=== PATIENT | female | born 1975 | race Caucasian/White ===

== ENCOUNTER → 2018-06-16 06:42 | Outpatient (CLI) | payer OTHER, SELFPAY ==
--- NOTE | 2018-06-16 06:51 | CT_ITS ---
STUDY: CT MAXILLOFACIAL SINUSES REASON FOR EXAM: Female, 43 years old. Anosmia x6 months. RADIATION DOSAGE (If Supplied By Facility): CTDIvol = ( 33.06 ) mGy, DLP = ( 883.43 ) mGycm TECHNIQUE: The patient was scanned in a multi detector CT scanner. High resolution axial imaging was performed without the administration of intravenous contrast material. Sagittal and coronal images were reconstructed. Individualized dose optimization techniques were used for this CT. COMPARISON: None. FINDINGS: FRONTAL SINUSES: Normal aeration, without mucosal inflammatory disease. ETHMOIDAL SINUSES: Normal aeration, without mucosal inflammatory disease. MAXILLARY SINUSES: Pronounced mucosal thickening in the right maxillary sinus. Normal left maxillary sinus. SPHENOIDAL SINUSES: Normal aeration, without mucosal inflammatory disease. Narrowing but patent right ostiomeatal unit. Mucosal thickening of the right Rosanna cell. Normal left ostiomeatal unit. Hypoplastic middle turbinates. Normal bilateral inferior turbinates. Mild right nasal septal deviation. There is patency of the bilateral nasal airways. The visualized osseous structures are normal. The visualized bilateral orbital contents are normal. Prominent protrusion of the right upper third molar into the right mattery sinus. CT/Sinus/Facial Bone IMPRESSION: 1. Pronounced right chronic maxillary sinusitis and mucosal thickening of the right Rosanna cell. 2. Mild right nasoseptal deviation. 3. Bilaterally patent ostiomeatal units. Electronically Signed: Maynor Samson MD at 14:36 EDT , Service support ,
== END ==
PROVIDERS: Family Provider Student in an Organized Health Care Education/Training Program; PCP Student in an Organized Health Care Education/Training Program; Referring Provider Otolaryngology
DX: R43.0 Anosmia (principal)
CPT/HCPCS: 70486

== ENCOUNTER → 2018-07-30 17:15 | Outpatient (CLI) | payer OTHER, SELFPAY ==
[2018-07-30 14:41] VITALS: BMI 27.8
[2018-08-03 11:56] LABS: HPV APTIMA, High Risk Negative (Negative)
--- OUTSIDE RECORDS SUMMARY | 2018-09-11 16:29 | XMS RPT_ITS ---
:1975 Author Organization OHIP Care Team Providers Name Role Phone JAY ANTHONY Attending Unavailable ANTHONY, JAY L Referring Unavailable ANTHONY, JAY L Referring Unavailable ANTHONY, JAY L Referring Unavailable ANTHONY, JAY L Referring Unavailable JOHN VALENCIA Attending Unavailable ANTHONY, JAY L Referring Unavailable ANTHONY, JAY L Referring Unavailable ANTHONY, JAY L Attending Unavailable ANTHONY, JAY L Referring Unavailable ANTHONY, JAY L Referring Unavailable ANTHONY, JAY L Referring Unavailable ANTHONY, JAY L Attending Unavailable ANTHONY, JAY L Attending Unavailable ANTHONY, JAY L Referring Unavailable ANTHONY, JAY L Referring Unavailable ALAN ISRAEL Attending Unavailable Anthony, Jay Primary Care Unavailable Tyrone Drake Referring Unavailable Nicole Dominguez Attending Unavailable Anthony, Jay Referring Unavailable Nicole Dominguez Attending Unavailable [place], Molly Referring Unavailable Jay Anthony Primary Care Unavailable PROBLEMS PROBLEMS DATE TYPE CONDITION / CODE ATTENDING STATUS SOURCE 07/30/2018 Unknown Z12.4 - Encounter for Nicole Dominguez Active [place] screening for Community malignant neoplasm of Hospital cervix / Repository Z12.4(ICD-10) 07/30/2018 Unknown Z01.411 - Encounter Nicole Dominguez Active [place] for gynecological Community examination (general) Hospital (routine) with Repository abnormal findings / Z01.411(ICD-10) 07/30/2018 Unknown R87.619 - Unspecified AngelicaNicole ozuna Active [place] abnormal cytological Community findings in [facility] from cervix uteri / Repository R87.619(ICD-10) 07/30/2018 Unknown M53.3 - Nicole Dominguez Active [place] Sacrococcygeal Community disorders, not Hospital elsewhere classified Repository / M53.3(ICD-10) 07/30/2018 Active Type 2 diabetes NA Active [facility] mellitus without Clinic Main complications / [facility] E11.9(ICD-10) Repository 07/30/2018 Active half-way (current) NA Active [facility] use of insulin / Clinic Main Z79.4(ICD-10) [facility] Repository 07/16/2018 Active Unspecified injury of NA Active [facility] lower back, initial Clinic Main encounter / [facility] S39.92XA(ICD-10) Repository 05/12/2017 Active Hyperlipidemia, NA Active [facility] unspecified / Clinic Main E78.5(ICD-10) [facility] Repository 07/13/2018 Active Other termite inspector NA Active [facility] (current) drug Clinic Main therapy / [facility] Z79.899(ICD-10) Repository 12/29/2017 Active Other symptoms and NA Active [facility] signs involving the Clinic Main musculoskeletal [facility] system / Repository R29.898(ICD-10) 12/29/2017 Active Paresthesia of skin / NA Active [facility] R20.2(ICD-10) Clinic Main [facility] Repository 12/29/2017 Active Radiculopathy, NA Active [facility] cervical region / Clinic Main M54.12(ICD-10) [facility] Repository 12/29/2017 Active Cervicalgia / NA Active [facility] M54.2(ICD-10) Clinic Main [facility] Repository 12/29/2017 Active Other chronic pain / NA Active [facility] G89.29(ICD-10) Clinic Main [facility] Repository 12/29/2017 Active Other cervical disc NA Active [facility] displacement, Clinic Main unspecified cervical [facility] region / Repository M50.20(ICD-10) 12/29/2017 Active Personal history of NA Active [facility] other (healed) Clinic Main physical injury and [facility] trauma / Repository Z87.828(ICD-10) PROCEDURES PROCEDURES No Procedure Records FoundRESULTS RESULTS [facility] Observed: 07/30/2018 Status: COMPLETED Source: [place] 5:18 PM CLINIC MAIN CAMPUS REPOSITORY HNO ID: [id number] Author: Mammography Coordinator Service: (none) Author Type: Physician Type: Letter Filed: 07/31/2018 11:33 PM Note Text: July 30, 2018 PID: [id number] Tatianna Pruett [address] [place] [address] Dear Ms. Pruett, We are pleased to inform you that the results of your recent breast imaging exam on 07/30/2018 are normal. Early detection of cancer is very important. We also understand recommendations regarding breast cancer screening are controversial. Please discuss with your primary care provider which strategy is best for you and whether a mammogram is right for you. Your imaging studies and report will be kept on file at [facility] as part of your permanent medical record and are available for your continuing care. Thank you for allowing us to help in meeting your health care needs. Sincerely, Dr. Strong Interpreting Radiologist [facility] (Normal over 40) DIE FORGER OFFICE VISIT Observed: 07/30/2018 Status: F Source: [place] RE[place] 3:22 PM [facility] REPOSITORY [facility] [address] [place] [address]. [address] [place] [address] OFFICE VISIT Date of Service: 07/30/18 MR#: [id number] Acct: [id number] Name: TATIANNA PRUETT Rep #: [id number] : 1975 Provider: WALDEMAR Dominguez Age/Sex: 43/F Location: [facility] Status: Signed Intake Vital Signs07/30/18 Height 5 ft 4 in 07/30/18 Weight: 162 lb 07/30/18 Body Mass Index (BMI) 27.8 Intake Visit Reasons: Annual, activity manager Ticket Printer And Tagger Required: No Is patient in pain?: No Allergies Penicillins Adverse Reaction (Unknown, Verified 07/30/18 14:43) unknown Medications doxycycline hyclate 100 mg capsule 100 mg PO BID 07/30/18 [History Confirmed 07/30/18] duloxetine 20 mg capsule,delayed release 20 mg PO BID 07/30/18 [History Confirmed 07/30/18] ethynodiol diac-eth estradiol 1 mg-35 mcg tablet 1 tab PO DAILY #84 tab 07/30/18 [Rx Confirmed 07/30/18] insulin glargine (U- 100) 100 unit/mL subcutaneous solution 20 unit SC DAILY 07/30/18 [History Confirmed 07/30/18] lisinopril 5 mg tablet 5 mg PO DAILY 07/30/18 [History Confirmed 07/30/18] meloxicam 15 mg tablet 15 mg PO DAILY 07/30/18 [History Confirmed 07/30/18] metformin 1,000 mg tablet 1,000 mg PO BID 07/30/18 [History Confirmed 07/30/18] omega-3 fatty acids 1,000 mg capsule 1,000 mg PO DAILY 07/30/18 [History Confirmed 07/30/18] Is last menstrual period known: Yes Last Menstral Period: 07/27/18 Post menopausal: No Patient : No : No PFSH Medical History Diabetes 1.5, managed as type 2 (Acute) Surgical History delivery delivered (Acute) Family History Mother Diabetes Father Diabetes Grandmother Hypertension Heart disease Social History current occupational status: employed current occupation: [employer] Smoking Status: Never smoker alcohol intake: never substance use type: does not use seatbelt use: sometimes do you feel safe at home: Yes additional social history: 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 DatName [place]/WeeksOutcome [facility] LocaProviderFOB e ht en tn Unknown Maye 1995 Unknown Deion 2004 HPI Annual, activity manager : Details: TATIANNA PRUETT is a 43 year old who presents for new patient annual exam. Aware needs to follow up on last year's abnormal pap but bad experience with prior provider and wanted to transfer care. She is also having pain at tailbone. Last PAP: Jun 2017:abnormal History of abnormal PAP: Negative colp Aug 2017 [facility] Last mammogram: today, pending History of abnormal mammogram: no Regular menses, last 2-3 days Sexually active, , denies STD concerns. Mallorier for contraception Female Reproductive History Last Menstral Period: 07/27/18 Questions: Metorrhagia: No, Sexually active: Yes, Dyspareunia: No, PCB: No ROS Const Constitutional: Denies fatigue, weight gain or weight loss Cardio Card: Denies chest pain Resp Resp: Denies cough or shortness of breath with activity GI GI: Denies abdominal pain, constipation, change in stools, vomiting or bloating : Reports as per HPI; denies urinary frequency, pelvic pain, urinary urgency, vaginal discharge, vaginal itching, urinary incontinence or difficulty urinating Exam Const General: cooperative, healthy appearing, no acute distress, well developed Orientation: alert, oriented to person, oriented to place HENMT Head: normal to inspection Neck Neck: normal visual inspection Thyroid: thyroid normal Lymphatic: no lymphadenopathy noted Chest Breast inspection: normal inspection of the breasts, normal inspection of the axillae Breast palpation: normal palpation of the breasts, normal palpation of the axillae, no axillary lymphadenopathy Resp Effort AND Inspection: normal respiratory effort GI Palpation: soft, nontender, no masses Rectal Exam: deferred External Female Exam: normal external appearance, normal appearance of the urethra Urethra: normal appearance of the urethra, normal palpation Speculum Exam - Vagina: normal appearance of the vagina, normal vaginal discharge Speculum Exam - Cervix: normal appearance of the cervix Bimanual Exam- Vagina AND Uterus: normal bimanual exam, uterine size normal, uterine shape normal, uterus non-tender Bimanual Exam- Adnexa, other: normal adnexae, no adnexal masses, adnexae non-tender, pelvic support normal Pelvic Support: normal Musc Coccyx: tenderness (displaced to left. No masses) Neuro General: alert, oriented x3 Psych Affect: normal affect Assessment AND Plan Problems 1. Encounter for gynecological examination with abnormal finding Z01.411 2. Abnormal cervical Papanicolaou smear, unspecified abnormal pap finding R87.619 3. Coccyx pain M53.3 Plan Completed breast and pelvic exam Reviewed diet and exercise Pap thin prep pap with HPV Mammogram pending today at [facility] Contraception refill oral contraceptive Follow up with PCP on pain in coccyx RTO 1 year, prn with problems Nicole Dominguez CRITICAL CARE UNIT NURSE Medications New: Discontinued: ethynodiol diac-eth estradiol 1-50 mg-mcg ([place]) Discontinued Reason:1 tab PO DAILY Ordered/Entered in error Coding Level of Care Code Off vis,new,prev 40-64yrs Diagnoses Encounter for gynecological examination with abnormal finding Z01.411 Gynecological examination findings: abnormal findings PRESENT Abnormal cervical Papanicolaou smear, unspecified abnormal pap finding R87.619 Abnormal Pap type: unspecified Coccyx pain M53.3 07/30/18 1522 <Electronically signed by Nicole Dominguez LAPEL PADDER-C> Date Nicole Dominguez LAPEL PADDER-C Cosigner Signature: Date (if applicable) CC: PAP IG HPV APTIMA Collected: 07/30/2018 Status: F Source: [place] ,45 2:30 PM [facility] REPOSITORY Order Comment: Specimen Comment: No. of containers..01 ThinPrep Vial TYPE CODE TESTS RESULT OUT OF RANGE REFERENCE UNITS LAB L7400.0800 . Normal DIAGN Comment Result Comment: NEGATIVE FOR INTRAEPITHELIAL LESION AND MALIGNANCY. REACTIVE CELLULAR CHANGES AND/OR REPAIR ARE PRESENT. LAB L7400.0900 . Normal ADEQ Comment Result Comment: Satisfactory for evaluation. Endocervical and/or squamous metaplastic cells (endocervical component) are present. LAB L7400.1400 . Normal PERFORM Comment Result Comment: Herber Huang, Piano Player (ASCP) LAB L7400.1700 . Normal SIGN Comment Result Comment: Ary Moreno MD, Pathologist LAB L7400.6210 . Normal TEST METHOD Comment Result Comment: This liquid based ThinPrep(R) pap test was screened with the use of an image guided system. LAB L7400.2600 . Normal . COMM LAB L7400.2700 . Normal PAPSMR Comment Result Comment: The Pap smear is a screening test designed to aid in the detection of premalignant and malignant conditions of the uterine cervix. It is not a diagnostic procedure and should not be used as the sole means of detecting cervical cancer. Both false-positive and false-negative reports do occur. LAB L7400.2760 Negative Normal HPV APTIMA, Negative HR Result Comment: This test detects fourteen high-risk HPV types (16/18/31/33/35/39/45/ 51/52/56/58/59/66/68) without differentiation. Performed at: - [facility] [id number] Core Dipper: Ary Moreno MD, Phone: [phone] Performed at: =G - [facility] [id number] Core Dipper: Ary Moreno MD, Phone: [phone] Performed By: #### L7400.0280 #### [facility] (refer to report for specific site) refer to report for address and phone number [facility] SCREENING Observed: 07/30/2018 Status: F Source: [place] 2:01 PM [facility] REPOSITORY * * *Final Report* * * DATE OF EXAM: Jul 30 2018 2:01PM [id number] - [facility] SCREENING / PROCEDURE REASON: multiple diagnoses * * * * Physician Interpretation * * * * RESULT: #[id number] - [facility] SCREENING BILATERAL DIGITAL SCREENING MAMMOGRAM WITH CAD: 07/30/2018 HISTORY: Multiple Diagnoses\ Screening Mammogram - patient reports NO breast symptoms /SEE TECH NOTE /priors available for comparison. RESULT: TECHNIQUE: The study was acquired using full field digital technology and interpreted from soft copy. Current study was also evaluated with a Computer Aided Detection (CAD). Comparison is made to exams dated: 06/30/2017 mammogram - [facility], 12/11/2014 mammogram - , 11/28/2014 mammogram, and 10/03/2013 mammogram - [facility]. There are scattered fibroglandular elements in both breasts. No significant masses, calcifications, or other findings are seen in either breast. There has been no significant interval change. IMPRESSION: There is no mammographic evidence of malignancy. A 1 year screening mammogram is recommended. Barbara pollack/harpreet:07/30/2018 17:18:18 Egg And Spice Mixer(s): RT Emily(R)(M), [facility] letter sent: Normal over 40 Mammogram BI-RADS: 1 Negative Multiple national specialty organizations have released breast cancer screening guidelines for women at average risk for developing breast cancer - guidelines that are based on both evidence and opinion, yet differ on when to start and how often to screen for breast cancer. With representation from Breast Imaging, Internal Medicine, Women's Health, Family Medicine, and Medical/Surgical Oncology, the [facility] has carefully reviewed the data and reached the following consensus: 1) All women should engage in shared decision-making with their providers to decide when to start and how often to screen; 2) All women should have the opportunity to start screening mammography at age 40; 3) For women ages 45-55, we recommend annual screening mammograms; 4) For women ages 55 and over, we support both the transition from an annual to a biennial interval if this aligns more with patient's values and preferences, or continuation with annual screening; 5) All women should discuss with their providers when to stop screening mammograms. Sales And Merchandising Representative: Harpreet Transcribe Date/Time: Jul 30 2018 2:02P Dictated by: BARBARA STRONG MD This examination was interpreted and the report reviewed and electronically signed by: BARBARA STRONG MD on Jul 30 2018 5:18PM EST [id number] Observed: 07/17/2018 Status: COMPLETED Source: [place] 7:12 AM [facility] [place] REPOSITORY HNO ID: [id number] Author: Jay Anthony Service: (none) Author Type: Physician Type: Progress Notes Filed: 07/17/2018 7:18 AM Note Text: Patient presents with: Follow Up HPI: Tatianna Pruett is a 43 year old female who presents to the office today for review of health conditions. Concerns today: Admits to being off her insulin for several weeks due to her intentional weight loss efforts and felt her glucose was going low in the morning waking up with shakiness. Hasn't been routinely testing her blood glucose but is doing a better job with trying to cut back on fried and fatty foods and simple carbohydrates. Tailbone area discomfort, has occurred since losing weight, no known falls or injuries, just feels like pressure especially when sitting, better when walking. No bowel or bladder changes. Ms. Pruett has past history of diabetes. Since our last visit she denies excessive thirst or increased frequency of urination, chest pain or dyspnea , new or unusual visual symptoms and low sugar/hypoglycemic reactions. Follows a diabetic diet some of the time. She is not compliant with medication(s) and is tolerating med(s) without any side effects. She reports checking her glucose on infrequent basis. Patient's last HgA1C was Hemoglobin A1C (%) Date Value 07/13/2018 7.8 12/06/2017 7.5 ) Last Ophthalmology exam was within the past 12 months Ms. Pruett reports history of hyperlipidemia. Current therapy includes no current treatment. Denies side effects of muscle weakness or achiness. Her most recent lipid panels are reviewed. Cholesterol, Total (mg/dL) Date Value 07/13/2018 189 HDL Cholesterol (mg/dL) Date Value 07/13/2018 39 LDL Cholesterol (mg/dL) Date Value 07/13/2018 122 Triglyceride (mg/dL) Date Value 07/13/2018 140 Ms. Pruett indicates a history of hypertension and states that she is feeling well and denies any symptoms referable to elevated blood pressure. Specifically denies headache, chest pain, palpitations, dyspnea and peripheral edema. Patient denies any side effects of her medication(s) and is compliant with their regimen. Last 3 Encounter BP Readings: Date: BP: 07/16/2018 126/82 12/13/2017 120/70 12/06/2017 136/80 She watches her diet for sodium, low fat and low cholesterol some of the time. She does not check BP's generally. Tatianna gets minimal exercise. PAST MEDICAL HISTORY Diagnosis Date - Cellulitis and abscess of leg, except foot - Diabetes mellitus type 2 in obese (HCC) - Hypercholesterolemia PAST SURGICAL HISTORY Procedure Laterality Date - DELIVERY ONLY 10/24/1995 , low cervical - DELIVERY ONLY 06/02/2004 , low cervical Social History Marital status: Spouse name: Cathy Years of education: 12 Number of children: 2 Occupational History Occupation Employer [employer] Social History Main Topics Smoking status: Never Smoker Smokeless tobacco: Never Used Alcohol use: No Drug use: No Sexual activity: Yes Partners with: Male control/protection: Pill Comment: Toan FAMILY HISTORY Problem Relation Age of Onset - Diabetes Mother Diet Controled - Psychiatry Mother anxiety - Diabetes Father - other (hyperliidemia) Father - Diabetes Paternal Grandmother - Stroke Paternal Grandfather Allergies: ALLERGIES Allergen Reactions - Bee Pollens - Penicillins Current Meds: insulin glargine (LANTUS SOLOSTAR U-100 INSULIN) 100 unit/mL (3 mL) inpn Inject 20 Units subcutaneously daily at bedtime. lisinopril (ZESTRIL, PRINIVIL) 5 mg tablet TAKE 1 TABLET BY MOUTH ONCE DAILY metFORMIN (GLUCOPHAGE) 1,000 mg tablet TAKE 1 TABLET BY MOUTH TWICE DAILY WITH MEALS DULoxetine (CYMBALTA) 20 mg capsule TAKE 1 CAPSULE BY MOUTH ONCE DAILY blood sugar diagnostic (ACCU-CHEK ANAMARIA PLUS TEST STRP) test strip Test blood sugar(s) 5 times daily. Dx: 250.00. Insulin: Yes meloxicam (MOBIC) 15 mg tablet Take 1 tablet by mouth once daily as needed. tiZANidine (ZANAFLEX) 2 mg tablet Take 1 tablet by mouth every 8 hours as needed. ethynodiol diacetate-ethinyl estradiol 1 mg-35 mcg (ZOVIA 35E, 28,) 1-35 mg-mcg per tablet Take 1 tablet by mouth once daily. Blood-Glucose Meter (ACCU-CHEK ANAMARIA CONNECT METER) misc 1 Device as directed. Diagnosis: Type 2 diabetes, insulin dependent, uncontrolled Jvzkyigkdd-Qlyttmozkpxxw-Rxjp (FIORICET) 50-300-40 mg cap Take 1 capsule by mouth as directed. Take 1 capsule PO at onset of migraine headache, can repeat with 1 capsule PO in 1 hour if unresolved COMPOUNDED PRESCRIPTION KNEE HIGH COMPRESSION STOCKINGS 20 mm Hg DX: Leg swelling, Venous insufficiency, and recurrent cellulitis. Fish Oil-DHA-EPA 1,200-144-216 mg cap Take by mouth. pregabalin (LYRICA) 75 mg capsule Take 1 capsule by mouth twice daily for 30 days. Clobetasol Propionate 0.05 % sham Apply 1 application to affected area every 48 hours as needed. Review of Systems: The remainder of the review of systems is negative. PE: 07/16/18 1445 BP: 126/82 Pulse: 80 Resp: 16 Temp: 36.9 ?C (98.4 ?F) TempSrc: Left Tympanic Weight: 74.4 kg (164 lb) Gen: AANDO, NAD, non-toxic appearing, Pleasant, cooperative HEENT: NT/AC, PERRLA, EOMs intact b/l,wearing glasses, nares clear and patent b/l, pharynx without erythema, exudate or lesions. Missing teeth, MMM, Uvula midline. EACs without erythema or debris. TMs pearly weiss with intact landmarks b/l. Neck: supple, No cervical LAD, no thyromegaly, no carotid bruits CV: RRR, normal S1 and S2, no murmurs, no gallops, no rubs, Pulses 2+ and symmetric in UE and LE b/l Lungs: normal respiratory effort, CTA b/l, no wheezing or rhonchi or rales Abd: soft, NT, ND, +BS, no hepatosplenomegaly MS: mild lumbar restricted extension ROM, mild right tailbone area TTP without obvious deformity Neuro: CN II-XII intact b/l, strength 5/5 b/l UE and LE, DTRs 2/4 UE and LE, sensation intact. Skin: warm, dry, intact, No rashes or lesions on exposed skin. Foot exam: Monofilament normal on right and left feet. ASSESSMENT/PLAN: 1. Type 2 diabetes mellitus without complication, with long- term current use of insulin ([facility]) - ICD9: 250.00, V58.67, ICD10: E11.9, Z79.4 (primary diagnosis) uncontrolled Poor adherence to plan of care. - Decrease Lantus 20 QPM - Blood glucose monitoring on a once a day schedule - [facility] SCREENING - INSULIN GLARGINE (U-100) 100 UNIT/ML (3 ML) SUBCUTANEOUS PEN 2. Visit for screening mammogram - ICD9: V76.12, ICD10: Z12.31 - Set up for mammogram, yearly mammogram recommended - Encouraged monthly BSE 3. Injury of coccyx, initial encounter - ICD9: 959.19, ICD10: S39.92XA - xray as ordered, use of ice or heat and donut seat when sitting as d/w her today - XR LUMBAR MOTION 4V AP/LAT/ FLEX/EXT - XR SACRUM/COCCYX 3V AP/LAT 4. Dyslipidemia - ICD9: 272.4, ICD10: E78.5 - suboptimal control - Encouraged following a low fat, low cholesterol diet. - Discussed the benefits of regular aerobic exercise and weight loss. 5. Smell or taste sensation disturbance - ICD9: 781.1, ICD10: R43.9 - f/u with ENT, will have upcoming sinus balloon surgery per [place] [facility] Jay Anthony DO To ER if develops chest pain, shortness of breath, or severe worsening of symptoms. Discussed risks, benefits, alternatives, and potential side effects of medications. Patient expressed understanding and agreed with the plan. Jay Anthony DO [address] [place] [address] XR SACRUM/COCCYX 3V Observed: 07/16/2018 Status: F Source: [place] AP/LAT 4:17 PM CLINIC MAIN CAMPUS REPOSITORY * * *Final Report* * * DATE OF EXAM: Jul 16 2018 4:17PM WOX [id number] - XR SACRUM/COCCYX 3V AP/LAT / PROCEDURE REASON: Injury of coccyx, initial encounter * * * * Physician Interpretation * * * * HISTORY: Injury of coccyx, initial encounter . Pt. states pain in her Rt buttock for a couple of months. No known injury. TECHNIQUE: XR LUMBAR 4V AP/LAT/ FLEX/EXT, XR SACRUM/COCCYX 3V AP/LAT Laterality: NOT APPLICABLE Number of different views (projections): 5 (accession [id number]), 3 (accession [id number]) COMPARISON: None. RESULT: Counting reference: Lumbosacral junction. For the purposes of this report, L4-5 is considered the level of the iliac crest and there are 5 lumbar-type vertebrae. Anatomic Variants: None. Alignment near-anatomic. Vertebral body heights maintained without fracture. Intervertebral disc spaces maintained. Facet degenerative changes lower lumbar spine. No significant change in alignment from flexion to extension views. Coccyx appears intact. Sacral iliac joints intact. Visualized hip joints unremarkable. Pubic symphysis intact. Calcification overlying the L2 vertebral body on the lateral view, possibly a gallstone or debris within the bowel. No other significant abnormality. IMPRESSION: Mild degenerative changes lumbar spine. Unremarkable radiographs of the coccyx. Sales And Merchandising Representative: PSCB Transcribe Date/Time: Jul 16 2018 6:47P Dictated by : CHARLIE MORAN MD This examination was interpreted and the report reviewed and electronically signed by: CHARLIE MORAN MD on Jul 16 2018 6:51PM EST [id number] XR LUMBAR 4V AP/LAT/ Observed: 07/16/2018 Status: F Source: [place] FLEX/EXT 4:17 PM [facility] REPOSITORY * * *Final Report* * * DATE OF EXAM: Jul 16 2018 4:17PM WOX [id number] - XR LUMBAR 4V AP/LAT/ FLEX/EXT / PROCEDURE REASON: Injury of coccyx, initial encounter * * * * Physician Interpretation * * * * HISTORY: Injury of coccyx, initial encounter . Pt. states pain in her Rt buttock for a couple of months. No known injury. TECHNIQUE: XR LUMBAR 4V AP/LAT/ FLEX/EXT, XR SACRUM/COCCYX 3V AP/LAT Laterality: NOT APPLICABLE Number of different views (projections): 5 (accession [id number]), 3 (accession [id number]) COMPARISON: None. RESULT: Counting reference: Lumbosacral junction. For the purposes of this report, L4-5 is considered the level of the iliac crest and there are 5 lumbar-type vertebrae. Anatomic Variants: None. Alignment near-anatomic. Vertebral body heights maintained without fracture. Intervertebral disc spaces maintained. Facet degenerative changes lower lumbar spine. No significant change in alignment from flexion to extension views. Coccyx appears intact. Sacral iliac joints intact. Visualized hip joints unremarkable. Pubic symphysis intact. Calcification overlying the L2 vertebral body on the lateral view, possibly a gallstone or debris within the bowel. No other significant abnormality. IMPRESSION: Mild degenerative changes lumbar spine. Unremarkable radiographs of the coccyx. Sales And Merchandising Representative: BETSEY Transcribe Date/Time: Jul 16 2018 6:47P Dictated by : CHARLIE MORAN MD This examination was interpreted and the report reviewed and electronically signed by: CHARLIE MORAN MD on Jul 16 2018 6:51PM EST [id number] [id number] Observed: 07/16/2018 Status: COMPLETED Source: [place] 4:03 PM [facility] REPOSITORY HNO ID: [id number] Author: Juan Ramon Aguirre (Rt) Daniela Aguilar Service: (none) Author Type: Truss Maker Type: Progress Notes Filed: 07/16/2018 4:15 PM Note Text: Radiology Service Progress Note PATIENT NAME: Tatianna Pruett DATE OF SERVICE: July 16, 2018 TIME: 4:03 PM PATIENT IDENTITY VERIFICATION COMPLETED USING TWO (2) METHODS: Patient confirmed name verbally and Date of . PATIENT GENDER DATA: Female. status: : No status: NO. PATIENT RELEVANT IMPLANT DATA REVIEWED: Not Applicable RADIOLOGY DEPARTMENT: General X-ray: Exam(s) Completed: Spine X-Ray(s): Lumbar AP / LAT / L5-S1 / FLEX-EXT and Sacrum/Coccyx PERIPHERAL IV DATA: Not applicable SIGNED BY: RT Liam July 16, 2018 4:03 PM CNOV Observed: 07/16/2018 Status: COMPLETED Source: [place] 2:40 PM [facility] REPOSITORY Office Visit (FAMPWS) TATIANNA PRUETT ([id number]) 1975 F Date Time Provider Department 07/16/18 2:40 PM [facility] During your visit today, we recorded the following information about you: Temperature Pulse Respiration Blood pressure 98.4 degrees 80/minute 16/minute 126/82 Weight Last Period 74.4 kg 06/27/18 Jay Anthony, DO 07/16/2018 3:36 PM Signed Check fasting blood sugars in 1-2 weeks and my chart message or call me with readings lantus at 20 units each evening Jay Anthony, DO 07/17/2018 7:18 AM Signed Patient presents with: Follow Up HPI: Tatianna Pruett is a 43 year old female who presents to the office today for review of health conditions. Concerns today: Admits to being off her insulin for several weeks due to her intentional weight loss efforts and felt her glucose was going low in the morning waking up with shakiness. Hasn't been routinely testing her blood glucose but is doing a better job with trying to cut back on fried and fatty foods and simple carbohydrates. Tailbone area discomfort, has occurred since losing weight, no known falls or injuries, just feels like pressure especially when sitting, better when walking. No bowel or bladder changes. Ms. Pruett has past history of diabetes. Since our last visit she denies excessive thirst or increased frequency of urination, chest pain or dyspnea , new or unusual visual symptoms and low sugar/hypoglycemic reactions. Follows a diabetic diet some of the time. She is not compliant with medication(s) and is tolerating med(s) without any side effects. She reports checking her glucose on infrequent basis. Patient's last HgA1C was Hemoglobin A1C (%) Date Value 07/13/2018 7.8 12/06/2017 7.5 ) Last Ophthalmology exam was within the past 12 months Ms. Pruett reports history of hyperlipidemia. Current therapy includes no current treatment. Denies side effects of muscle weakness or achiness. Her most recent lipid panels are reviewed. Cholesterol, Total (mg/dL) Date Value 07/13/2018 189 HDL Cholesterol (mg/dL) Date Value 07/13/2018 39 LDL Cholesterol (mg/dL) Date Value 07/13/2018 122 Triglyceride (mg/dL) Date Value 07/13/2018 140 Ms. Pruett indicates a history of hypertension and states that she is feeling well and denies any symptoms referable to elevated blood pressure. Specifically denies headache, chest pain, palpitations, dyspnea and peripheral edema. Patient denies any side effects of her medication(s) and is compliant with their regimen. Last 3 Encounter BP Readings: Date: BP: 07/16/2018 126/82 12/13/2017 120/70 12/06/2017 136/80 She watches her diet for sodium, low fat and low cholesterol some of the time. She does not check BP's generally. Tatianna gets minimal exercise. PAST MEDICAL HISTORY Diagnosis Date - Cellulitis and abscess of leg, except foot - Diabetes mellitus type 2 in obese (HCC) - Hypercholesterolemia PAST SURGICAL HISTORY Procedure Laterality Date - DELIVERY ONLY 10/24/1995 , low cervical - DELIVERY ONLY 06/02/2004 , low cervical Social History Marital status: Spouse name: Cathy Years of education: 12 Number of children: 2 Occupational History Occupation Employer Comment [employer] Social History Main Topics Smoking status: Never Smoker Smokeless tobacco: Never Used Alcohol use: No Drug use: No Sexual activity: Yes Partners with: Male control/protection: Pill Comment: [place]an FAMILY HISTORY Problem Relation Age of Onset - Diabetes Mother Diet Controled - Psychiatry Mother anxiety - Diabetes Father - other (hyperliidemia) Father - Diabetes Paternal Grandmother - Stroke Paternal Grandfather Allergies: ALLERGIES Allergen Reactions - Bee Pollens - Penicillins Current Meds: insulin glargine (LANTUS SOLOSTAR U-100 INSULIN) 100 unit/mL (3 mL) inpn Inject 20 Units subcutaneously daily at bedtime. lisinopril (ZESTRIL, PRINIVIL) 5 mg tablet TAKE 1 TABLET BY MOUTH ONCE DAILY metFORMIN (GLUCOPHAGE) 1,000 mg tablet TAKE 1 TABLET BY MOUTH TWICE DAILY WITH MEALS DULoxetine (CYMBALTA) 20 mg capsule TAKE 1 CAPSULE BY MOUTH ONCE DAILY blood sugar diagnostic (ACCU-CHEK ANAMARIA PLUS TEST STRP) test strip Test blood sugar(s) 5 times daily. Dx: 250.00. Insulin: Yes meloxicam (MOBIC) 15 mg tablet Take 1 tablet by mouth once daily as needed. tiZANidine (ZANAFLEX) 2 mg tablet Take 1 tablet by mouth every 8 hours as needed. ethynodiol diacetate-ethinyl estradiol 1 mg-35 mcg (ZOVIA E, 28,) 1-35 mg-mcg per tablet Take 1 tablet by mouth once daily. Blood-Glucose Meter (ACCU-CHEK ANAMARIA CONNECT METER) misc 1 Device as directed. Diagnosis: Type 2 diabetes, insulin dependent, uncontrolled Dnbeubybmo-Rurioiqcesjdf-Icgq (FIORICET) 50-300-40 mg cap Take 1 capsule by mouth as directed. Take 1 capsule PO at onset of migraine headache, can repeat with 1 capsule PO in 1 hour if unresolved COMPOUNDED PRESCRIPTION KNEE HIGH COMPRESSION STOCKINGS 20 mm Hg DX: Leg swelling, Venous insufficiency, and recurrent cellulitis. Fish Oil-DHA-EPA 1,200-144-216 mg cap Take by mouth. pregabalin (LYRICA) 75 mg capsule Take 1 capsule by mouth twice daily for 30 days. Clobetasol Propionate 0.05 % sham Apply 1 application to affected area every 48 hours as needed. Review of Systems: The remainder of the review of systems is negative. PE: 07/16/18 1445 BP: 126/82 Pulse: 80 Resp: 16 Temp: 36.9 ?C (98.4 ?F) TempSrc: Left Tympanic Weight: 74.4 kg (164 lb) Gen: AANDO, NAD, non-toxic appearing, Pleasant, cooperative HEENT: NT/AC, PERRLA, EOMs intact b/l,wearing glasses, nares clear and patent b/l, pharynx without erythema, exudate or lesions. Missing teeth, MMM, Uvula midline. EACs without erythema or debris. TMs pearly weiss with intact landmarks b/l. Neck: supple, No cervical LAD, no thyromegaly, no carotid bruits CV: RRR, normal S1 and S2, no murmurs, no gallops, no rubs, Pulses 2+ and symmetric in UE and LE b/l Lungs: normal respiratory effort, CTA b/l, no wheezing or rhonchi or rales Abd: soft, NT, ND, +BS, no hepatosplenomegaly MS: mild lumbar restricted extension ROM, mild right tailbone area TTP without obvious deformity Neuro: CN II-XII intact b/l, strength 5/5 b/l UE and LE, DTRs 2/4 UE and LE, sensation intact. Skin: warm, dry, intact, No rashes or lesions on exposed skin. Foot exam: Monofilament normal on right and left feet. ASSESSMENT/PLAN: 1. Type 2 diabetes mellitus without complication, with long- term current use of insulin ([facility]) - ICD9: 250.00, V58.67, ICD10: E11.9, Z79.4 (primary diagnosis) uncontrolled Poor adherence to plan of care. - Decrease Lantus 20 QPM - Blood glucose monitoring on a once a day schedule - [facility] SCREENING - INSULIN GLARGINE (U-100) 100 UNIT/ML (3 ML) SUBCUTANEOUS PEN 2. Visit for screening mammogram - ICD9: V76.12, ICD10: Z12.31 - Set up for mammogram, yearly mammogram recommended - Encouraged monthly BSE 3. Injury of coccyx, initial encounter - ICD9: 959.19, ICD10: S39.92XA - xray as ordered, use of ice or heat and donut seat when sitting as d/w her today - XR LUMBAR MOTION 4V AP/LAT/ FLEX/EXT - XR SACRUM/COCCYX 3V AP/LAT 4. Dyslipidemia - ICD9: 272.4, ICD10: E78.5 - suboptimal control - Encouraged following a low fat, low cholesterol diet. - Discussed the benefits of regular aerobic exercise and weight loss. 5. Smell or taste sensation disturbance - ICD9: 781.1, ICD10: R43.9 - f/u with ENT, will have upcoming sinus balloon surgery per [facility] Jay Anthony DO To ER if develops chest pain, shortness of breath, or severe worsening of symptoms. Discussed risks, benefits, alternatives, and potential side effects of medications. Patient expressed understanding and agreed with the plan. Jay Anthony DO [address] [place] [address] Referring Provider: JAY ANTHONY [[id number]] Allergies As of Date: 07/16/2018 Noted Allergy Reaction BEE POLLENS 09/12/2005 PENICILLINS 06/25/2005 Date Reviewed: 07/16/2018 Reviewed by: Tatianna Coffman LPN - Fully Assessed Reason for Visit: Follow Up [171] Primary Visit Diagnosis:Type 2 diabetes mellitus without complication, with long-term current use of insulin (HCC) [E11.9, Z79.4] Other Visit Diagnoses:Visit for screening mammogram [Z12.31] Injury of coccyx, initial encounter [S39.92XA] Dyslipidemia [E78.5] Smell or taste sensation disturbance [R43.9] Order(s):[facility] SCREENING [[id number]] Order #: [id number] FUTURE insulin glargine (LANTUS SOLOSTAR U-100 INSULIN) 100 unit/mL (3 mL) inpnInject 20 Units subcutaneously daily at bedtime.Disp: Rfl: XR LUMBAR MOTION 4V AP/LAT/ FLEX/EXT [[id number]] Order #: [id number] FUTURE XR SACRUM/COCCYX 3V AP/LAT [[id number]] Order #: [id number] FUTURE Prescriptions as of 07/16/2018 Sig: INSULIN GLARGINE (U-100) 100 * Inject 20 Units subcutaneousl* LISINOPRIL 5 MG TABLET TAKE 1 TABLET BY MOUTH ONCE D* METFORMIN 1,000 MG TABLET TAKE 1 TABLET BY MOUTH TWICE * DULOXETINE 20 MG CAPSULE,FLORENCE* TAKE 1 CAPSULE BY MOUTH ONCE * BLOOD SUGAR DIAGNOSTIC STRIPS Test blood sugar(s) 5 times d* MELOXICAM 15 MG TABLET Take 1 tablet by mouth once d* TIZANIDINE 2 MG TABLET Take 1 tablet by mouth every * ETHYNODIOL DIAC-ETH ESTRADIOL* Take 1 tablet by mouth once d* BLOOD-GLUCOSE METER 1 Device as directed. Diagnos* AFJSYUPEMH-DWCRZKVOLAVOR-FHUZ* Take 1 capsule by mouth as di* COMPOUNDED PRESCRIPTION KNEE HIGH COMPRESSION STOCKIN* FISH OIL-DHA-EPA 1,200 MG-144* Take by mouth. Problem List As Of Date 07/16/2018 Noted Resolved Glucosuria [R81] INVALID FOR*10/03/2013 Hyperglycemia [R73.9] INVALID FOR*01/29/2013 Diabetes mellitus, type 2 [E11.9] INVALID FOR* Hyperlipidemia [E78.5] INVALID FOR* Abnormal uterine bleeding [N93.9] INVALID FOR* Seborrheic dermatitis of scalp [L21.9] INVALID FOR* Obesity, Class II, BMI 35-39.9 [E66.9] INVALID FOR* Dyslipidemia [E78.5] INVALID FOR* Carpal tunnel syndrome, bilateral [G56.03] INVALID FOR* Radiculopathy, cervical region [M54.12] INVALID FOR* Cervical disc herniation [M50.20] INVALID FOR* DDD (degenerative disc disease), cervical [M50.*INVALID FOR* Other instructions from your clinician: Check fasting blood sugars in 1-2 weeks and my chart message or call me with readings lantus at 20 units each evening Prescriptions ordered this encounter Disp Refills Start End INSULIN GLARGINE (U-100) 100 UNIT/ML* 07/16/2018 Class: Med Update Route: SUBCUTANEOUS Sig: Inject 20 Units subcutaneously daily at bedtime. Medications Discontinued During This Encounter insulin glargine (LANTUS SOLOSTAR U-* 11 P* 5 12/13/2017 07/16/2018 Route: SUBCUTANEOUS Sig: Inject 36 Units subcutaneously daily at bedtime. Disc: Reason for discontinue is not on file. metFORMIN (GLUCOPHAGE) 1,000 mg tabl* 60 t* 0 06/11/2018 07/16/2018 Route: ORAL Sig: TAKE 1 TABLET BY MOUTH TWICE DAILY WITH MEALS Disc: Reason for discontinue is not on file. pregabalin (LYRICA) 75 mg capsule 60 c* 2 12/06/2017 07/17/2018 Class: Print RX Route: ORAL Sig: Take 1 capsule by mouth twice daily for 30 days. Disc: Reason for discontinue is not on file. Clobetasol Propionate 0.05 % sham 1 German* 3 04/01/2016 07/17/2018 Route: TOPICAL Sig: Apply 1 application to affected area every 48 hours as needed. Disc: Reason for discontinue is not on file. Encounter Status:Closed by JAY ANTHONY DO on 07/17/18 COMP METABOLIC PANEL Collected: 07/13/2018 Status: F Source: [place] 12:08 PM [facility] REPOSITORY TYPE CODE TESTS RESULT OUT OF REFERENCE UNITS RANGE LAB TP 6.3-8.0 g/dL Protein, Total 7.0 LAB ALB 3.9-4.9 g/dL Albumin 4.0 LAB CA 8.5-10.2 mg/dL Calcium, Total 9.3 LAB TBIL 0.2-1.3 mg/dL Bilirubin, Total 0.4 LAB ALKP 34-123 U/L Alkaline Phosphatase 63 LAB AST 13-35 U/L AST 15 LAB GLU 74-99 mg/dL Low Glucose 59 Result Comment: The [place] Diabetes Association (ADA) provides guidance for cutoff values for fasting glucose and random glucose. The ADA defines fasting as no caloric intake for at least 8 hours. Fas ting plasma glucose results between 100 to 125 mg/dL indicate increased risk for diabetes (prediabetes). Fasting plasma glucose results greater than or equal to 126 mg/dL meet the criteria for diagnosis of diabetes. In the absence of unequivocal hyperglycemia, results should be confirmed by repeat testing. In a patient with classic symptoms of hyperglycemia or hyperglycemic crisis, random plasma glucose results greater than or equal to 200 mg/dL meet the criteria for diagnosis of diabetes. Reference: Standards of Medical Care in Diabetes 2016, [place] Diabetes Association. Diabetes Care. 2016.39(Suppl 1). LAB BUN 7-21 mg/dL BUN 12 LAB CRET 0.58-0.96 mg/dL Creatinine 0.64 LAB NA 136-144 mmol/L Sodium 139 LAB K 3.7-5.1 mmol/L Potassium 3.8 LAB CL 97-105 mmol/L Chloride Low 96 LAB CO2 22-30 mmol/L CO2 25 LAB AGAP 9-18 mmol/L Anion Gap 18 LAB ALT 7-38 U/L ALT 10 LAB GFRAA eGFR- Amer. >60 LAB GFRNAA . eGFR-All Other Races >60 Result Comment: eGFR (Estimated GFR) Units of measure: mL/min/1.73 meters squared eGFR is derived from the reexpressed MDRD Study equation using the following parameters: serum creatinine, age, gender and race. The creatinine assay has been calibrated to be traceable to IDMS. An eGFR <60 mL/min/1.73m2 for >3 months is consistent with chronic kidney disease. Refer to KDOQI guidelines for clinical interpretation. In patients with unstable renal function, e.g. those with acute kidney injury, the eGFR may not accurately reflect actual GFR. Performed By: #### CMP, LIPB, CBCDIF, HBA1C #### [facility] [address] [place], [place] [address] LIPID PANEL, BASIC Collected: 07/13/2018 Status: F Source: [place] 12:08 PM [facility] REPOSITORY TYPE CODE TESTS RESULT OUT OF REFERENCE UNITS RANGE LAB CHOL <200 mg/dL Cholesterol 189 Result Comment: <200 mg/dL, Desirable 200-239 mg/dL, Borderline high >239 mg/dL, High LAB TRIGLY <150 mg/dL Triglyceride 140 Result Comment: <150 mg/dL, Normal 150-199 mg/dL, Borderline high 200-499 mg/dL, High >499 mg/dL, Very high LAB HDL >39 mg/dL HDL-Cholesterol Low 39 Result Comment: 40-59 mg/dL, Acceptable >59 mg/dL, High: Negative risk factor for coronary heart disease <40 mg/dL, Low: Positive risk factor for coronary heart disease LAB LDL <100 mg/dL LDL-Cholesterol High 122 Result Comment: <100 mg/dL, Optimal 100-129 mg/dL, Near optimal/above optimal 130-159 mg/dL, Borderline high 160-189 mg/dL, High >189 mg/dL, Very high Secondary prevention optimal LDL Cholesterol levels are recommended to be < 70 mg/dL LAB NONHDL <130 mg/dL Non HDL High Cholesterol 150 Result Comment: <130 mg/dL, Optimal 130-159 mg/dL, Near optimal/above optimal 160-189 mg/dL, Borderline high 190-219 mg/dL, High >219 mg/dL, Very high Secondary prevention optimal non HDL Cholesterol levels are recommended to be < 100 mg/dL LAB FT hrs Fasting Time 14 LAB VLDL <30 mg/dL VLDL Cholesterol 28 LAB TCHDL <5.10 TC:HDL Ratio 4.85 LAB LDLHDL <2.54 High LDL:HDL Ratio 3.13 Result Comment: Reference: 1. National Cholesterol Education Program ATP III Guideline At-A-Glance Quick Desk Reference: National Heart, Lung, and Blood [place]. National Institutes of Health. 2001: NIH Publication No. 01-3305. 2. An International Atherosclerosis Society position paper: global recommendations for the management of dyslipidemia: executive summary, Atherosclerosis. 2014: 232(2):410-413. Performed By: #### CMP, LIPB, CBCDIF, HBA1C #### [facility] [address] [place], [place] [address] CBC AND DIFFERENTIAL Collected: 07/13/2018 Status: F Source: [place] 12:08 PM [facility] REPOSITORY TYPE CODE TESTS RESULT OUT OF REFERENCE UNITS RANGE LAB WBC 3.70-11.00 k/uL WBC 10.20 LAB RBC 3.90-5.20 m/uL RBC 4.63 LAB HGB 11.5-15.5 g/dL Hemoglobin 13.1 LAB HCT 36.0-46.0 % Hematocrit 41.1 LAB MCV 80.0-100.0 fL MCV 88.8 LAB MCH 26.0-34.0 pG MCH 28.3 LAB MCHC 30.5-36.0 g/dL MCHC 31.9 LAB RDWCV 11.5-15.0 % RDW-CV 13.2 LAB PLTCT 150-400 k/uL Platelet High Count 427 LAB MPV 9.0-12.7 fL MPV 10.1 LAB ANEUT % Neut% 67.2 LAB AANEUT 1.45-7.50 k/uL Abs Neut 6.86 LAB ALYMP % Lymph% 26.5 LAB AALYMP 1.00-4.00 k/uL Abs Lymph 2.70 LAB AMONO % Carter% 5.3 LAB AAMONO <0.87 k/uL Abs Carter 0.54 LAB AEOS % Eosin% 0.4 LAB AAEOS <0.46 k/uL Abs Eosin 0.04 LAB ABASO % Baso% 0.6 LAB AABASO <0.11 k/uL Abs Baso 0.06 LAB AUNRBC 0 /100 WBC NRBCs 0.0 LAB ABNRBC <0.01 k/uL Absolute nRBC <0.01 LAB DTYP DTYPE Auto Diff Performed By: #### CMP, LIPB, CBCDIF, HBA1C #### [facility] [address] [place], [place] [address] HEMOGLOBIN A1C Collected: 07/13/2018 Status: F Source: [place] 12:08 PM [facility] REPOSITORY TYPE CODE TESTS RESULT OUT OF REFERENCE UNITS RANGE LAB HGBA1C 4.3-5.6 % High Hemoglobin A1c 7.8 LAB HBA0 mg/dL Est. Average Glucose 177 Result Comment: eAG: (Estimated average glucose) is a calculated value from HgbA1c and is customer development representative of the average blood glucose level in the last 2-3 month period. Performed By: #### CMP, LIPB, CBCDIF, HBA1C #### [facility] [address] [place], [place] [address] CNPTOUTREACH Observed: 07/03/2018 Status: COMPLETED Source: [place] 12:00 AM [facility] REPOSITORY Patient Outreach (FAMPST) TATIANNA PRUETT ([id number]) 1975 F Date Time Provider Department 07/03/18 JAY ANTHONY FAMPST During your visit today, we recorded the following information about you: Allergies As of Date: 07/03/2018 Noted Allergy Reaction BEE POLLENS 09/12/2005 PENICILLINS 06/25/2005 Date Reviewed: 01/24/2018 Reviewed by: Demario Lopez Ma - Fully Assessed Visit Diagnosis:Medication management [Z79.899] Order(s):ALBUMIN/CREAT RATIO RND UR [SQUACR] Order #: [id number] FUTURE Prescriptions as of 07/03/2018 Sig: METFORMIN 1,000 MG TABLET TAKE 1 TABLET BY MOUTH TWICE * X METFORMIN 1,000 MG TABLET TAKE 1 TABLET BY MOUTH TWICE * DULOXETINE 20 MG CAPSULE,FLORENCE* TAKE 1 CAPSULE BY MOUTH ONCE * BLOOD SUGAR DIAGNOSTIC STRIPS Test blood sugar(s) 5 times d* MELOXICAM 15 MG TABLET Take 1 tablet by mouth once d* TIZANIDINE 2 MG TABLET Take 1 tablet by mouth every * X LISINOPRIL 5 MG TABLET TAKE ONE TABLET BY MOUTH ONCE* X INSULIN GLARGINE (U-100) 100 * Inject 36 Units subcutaneousl* X PREGABALIN 75 MG CAPSULE Take 1 capsule by mouth twice* ETHYNODIOL DIAC-ETH ESTRADIOL* Take 1 tablet by mouth once d* BLOOD-GLUCOSE METER 1 Device as directed. Diagnos* RDQMFZORVT-YYLLLTDEQQPZS-XLGH* Take 1 capsule by mouth as di* X CLOBETASOL 0.05 % SHAMPOO Apply 1 application to affect* COMPOUNDED PRESCRIPTION KNEE HIGH COMPRESSION STOCKIN* FISH OIL-DHA-EPA 1,200 MG-144* Take by mouth. Problem List As Of Date 07/03/2018 Noted Resolved Glucosuria [R81] INVALID FOR*10/03/2013 Hyperglycemia [R73.9] INVALID FOR*01/29/2013 Diabetes mellitus, type 2 [E11.9] INVALID FOR* Hyperlipidemia [E78.5] INVALID FOR* Abnormal uterine bleeding [N93.9] INVALID FOR* Seborrheic dermatitis of scalp [L21.9] INVALID FOR* Obesity, Class II, BMI 35-39.9 [E66.9] INVALID FOR* Dyslipidemia [E78.5] INVALID FOR* Carpal tunnel syndrome, bilateral [G56.03] INVALID FOR* Radiculopathy, cervical region [M54.12] INVALID FOR* Cervical disc herniation [M50.20] INVALID FOR* DDD (degenerative disc disease), cervical [M50.*INVALID FOR* Encounter Status:Closed by EPIC, PRODUSER on 08/03/18 CMP Collected: 06/27/2018 Status: F Source: [facility] 9:12 AM [facility] REPOSITORY Order Comment: [place] [employer] TYPE CODE TESTS RESULT OUT OF REFERENCE UNITS RANGE LAB GLU(LOINC) 70-110 mg/dL Glucose High Level 172 LAB NA(LOINC) 136-145 mEq/L Sodium Level 137 LAB K(LOINC) 3.5-5.0 mEq/L Potassium Level 4.1 LAB CL(LOINC) 98-110 mEq/L Chloride 101 LAB CO2(LOINC) 22-32 mEq/L CO2 26 LAB EBAL(LOINC 4.0-15.0 mEq/L ) Electrolyte Balance 10.0 LAB BUN(LOINC) 8.0-22.0 mg/dL BUN 13.0 LAB CRE(LOINC) 0.50-1.20 mg/dL Creatinine Lvl (s) 0.69 LAB BC(LOINC) 10.0-22.0 ratio BUN/Creatinine 18.8 Ratio LAB CA(LOINC) 8.4-10.1 mg/dL Calcium Lvl 9.6 LAB PROT(LOINC 6.0-8.5 G/dL ) Total Protein 7.1 LAB ALB(LOINC) 3.2-4.8 G/dL Albumin Level 3.7 LAB GLB(LOINC) 1.5-3.8 G/dL Globulin 3.4 LAB AG(LOINC) 0.9-1.6 ratio A/G Ratio 1.1 LAB BILT(LOINC 0.2-1.2 mg/dL ) Bili Total 0.5 LAB AP(LOINC) 38-126 U/L Alk Phos 73 LAB AST(LOINC) 8-34 U/L AST/SGOT 10 LAB ALT(LOINC) 10-49 U/L ALT/SGPT 15 Performed By: #### CMP, GFR, LIPID #### [address] [address] .GFR Collected: 06/27/2018 Status: F Source: [facility] 9:12 AM [facility]OUND[facility] REPOSITORY TYPE CODE TESTS RESULT OUT OF REFERENCE UNITS RANGE LAB GFRAA(LOINC ml/min/1.73 ) sqm GFR >60 Danish Result Comment: GFR Population mean for , Non- Americans Ages 20-29 = 116 mL/min/1.73 sq.m. Ages 30-39 = 107 mL/min/1.73 sq.m. Ages 40-49 = 99 mL/min/1.73 sq.m. Ages 50-59 = 93 mL/min/1.73 sq.m. Ages 60-69 = 85 mL/min/1.73 sq.m. Ages 70+ = 75 mL/min/1.73 sq.m. Chronic Kidney Disease: Less than 60 mL/min/1.73 square meters End Stage Renal Disease: Less than 15 mL/min/1.73 square meters LAB GFRNO(LOINC) ml/min/1.73sqm GFR Non- >60 Result Comment: GFR Population mean for , Non- Americans Ages 20-29 = 116 mL/min/1.73 sq.m. Ages 30-39 = 107 mL/min/1.73 sq.m. Ages 40-49 = 99 mL/min/1.73 sq.m. Ages 50-59 = 93 mL/min/1.73 sq.m. Ages 60-69 = 85 mL/min/1.73 sq.m. Ages 70+ = 75 mL/min/1.73 sq.m. Chronic Kidney Disease: Less than 60 mL/min/1.73 square meters End Stage Renal Disease: Less than 15 mL/min/1.73 square meters Performed By: #### CMP, GFR, LIPID #### [address] [address] LIPID Collected: 06/27/2018 Status: F Source: [facility] 9:12 AM [facility] REPOSITORY TYPE CODE TESTS RESULT OUT OF REFERENCE UNITS RANGE LAB CHOL(LOINC 50-199 mg/dL ) Cholesterol High 207 Result Comment: Cholesterol Reference Interval: Less than 200 Desirable 200-239 Borderline high risk 240 and above High risk LAB TRIG(LOINC) 3-149 mg/dL Triglycerides High 190 Result Comment: Triglyceride Reference Interval: Less than 150 Normal 150-199 Borderline high risk 200-499 High risk 500 or higher Very high risk LAB HD(LOINC) 40-59 mg/dL HDL Cholesterol 41 Result Comment: HDL Reference Interval: Less than 40 Low - high risk 60 or above Optimal/lowers risk LAB LDL(LOINC) 0-129 mg/dL LDL Cholesterol 128 Result Comment: LDL is a calculated result and requires a 12-hr fast. LDL Reference Interval: Less than 100 Optimal 100-129 Near or above optimal 130-159 Borderline high risk 160-189 High risk 190 and above Very high risk Performed By: #### CMP, GFR, LIPID #### [facility] [address] [place] [id number] SINUS/FACIAL BONE Observed: 06/16/2018 Status: F Source: [place] 6:52 AM [facility] REPOSITORY [facility] Imaging Services [address] [place] [id number] Sinus/Facial Bone MR#: [id number] Acct: [id number] Name: TATIANNA PRUETT Rep #: [id number] : 1975 F 43 From: Maynor Samson MD PCP: Jay Lee DO Status: REG CLI Study: Sinus/Facial Bone Date of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 Value 09/02/2017 40 LDL Cholesterol (mg/dL) Date Value 09/02/2017 118 Triglyceride (mg/dL) Date Value 09/02/2017 157 Ms. Pruett indicates a history of hypertension and states that she is feeling well and denies any symptoms referable to elevated blood pressure. Specifically denies headache, chest pain, palpitations, dyspnea and peripheral edema. Patient denies any side effects of her medication(s) and is compliant with their regimen. Last 3 Encounter BP Readings: Date: BP: 09/06/2017 130/70 08/04/2017 138/86 05/10/2017 130/76 She watches her diet for sodium, low fat and low cholesterol most of the time. She does not check BP's generally. Tatianna gets sporadic irregular exercise. PAST MEDICAL HISTORY Diagnosis Date - Cellulitis and abscess of leg, except foot - Diabetes mellitus type 2 in obese (HCC) - Hypercholesterolemia PAST SURGICAL HISTORY Procedure Laterality Date - DELIVERY ONLY 10/24/1995 , low cervical - DELIVERY ONLY 06/02/2004 , low cervical Social History Marital status: Spouse name: Cathy Years of education: 12 Number of children: 2 Occupational History Occupation Employer [employer] Social History Main Topics Smoking status: Never Smoker Smokeless status: Never Used Alcohol use: No Drug use: No Sexual activity: Yes Partners with: Male control/protection: Pill Comment: Toan FAMILY HISTORY Problem Relation Age of Onset - Diabetes Mother Diet Controled - Psychiatry Mother anxiety - Diabetes Father - hyperliidemia [OTHER] Father - Diabetes Paternal Grandmother - Stroke Paternal Grandfather Allergies: ALLERGIES Allergen Reactions - Bee Pollens - Penicillins Current Meds: insulin glargine (LANTUS SOLOSTAR) 100 unit/mL (3 mL) inpn Inject 36 Units subcutaneously daily at bedtime. meloxicam (MOBIC) 15 mg tablet Take 1 tablet by mouth once daily as needed. metFORMIN (GLUCOPHAGE) 1,000 mg tablet Take 1 tablet by mouth twice daily with meals. lisinopril (ZESTRIL, PRINIVIL) 5 mg tablet Take 1 tablet by mouth once daily. Blood-Glucose Meter (ACCU-CHEK ANAMARIA CONNECT METER) misc 1 Device as directed. Diagnosis: Type 2 diabetes, insulin dependent, uncontrolled Tfogangguc-Wulxatvjfetuq-Bjra (FIORICET) 50-300-40 mg cap Take 1 capsule by mouth as directed. Take 1 capsule PO at onset of migraine headache, can repeat with 1 capsule PO in 1 hour if unresolved blood sugar diagnostic (ACCU-CHEK ANAMARIA PLUS TEST STRP) test strip Test blood sugar(s) 5 times daily. Dx: 250.00. Insulin: Yes COMPOUNDED PRESCRIPTION KNEE HIGH COMPRESSION STOCKINGS 20 mm Hg DX: Leg swelling, Venous insufficiency, and recurrent cellulitis. Fish Oil-DHA-EPA 1,200-144-216 mg cap Take by mouth. ethynodiol diacetate-ethinyl estradiol 1 mg-35 mcg (ZOVIA , ,) 1-35 mg-mcg per tablet Take 1 tablet by mouth once daily. Clobetasol Propionate 0.05 % sham Apply 1 application to affected area every 48 hours as needed. Review of Systems: The remainder of the review of systems is negative. PE: 09/06/171956 BP: 130/70 Pulse: 80 Resp: 16 Temp: 36.7 ?C (98 ?F) TempSrc: Temporal Artery Weight: 92.1 kg (203 lb) Gen: AANDamp;O, NAD, non-toxic appearing, Pleasant, cooperative HEENT: NT/AC, PERRLA, EOMs intact b/l, nares clear and patent b/l, pharynx without erythema, exudate or lesions. Uvula midline. MMM Neck: supple, No cervical LAD, no thyromegaly, no carotid bruits CV: RRR, normal S1 and S2, no murmurs, no gallops, no rubs, Pulses 2+ and symmetric in UE and LE b/l Lungs: normal respiratory effort, CTA b/l, no wheezing or rhonchi or rales MS: FROM all 4 extremities Neuro: CN II-XII intact b/l, strength 5/5 b/l UE and LE, DTRs 2/4 UE and LE, sensation intact. Skin: warm, dry, intact, No rashes or lesions on exposed skin. Foot exam: Monofilament normal on right and left feet. ASSESSMENT/PLAN: 1. Type 2 diabetes mellitus without complication, with long- term current use of insulin (HCC) - ICD9: 250.00, V58.67, ICD10: E11.9, Z79.4 (primary diagnosis) uncontrolled improved control - Continue current medications - Blood glucose monitoring on a once a day schedule - INSULIN GLARGINE 100 UNIT/ML (3 ML) SUBCUTANEOUS PEN 2. Encounter for initial prescription of contraceptive pills - ICD9: V25.01, ICD10: Z30.011 - discussed with patient on how to take OCP's. - counseled on benefits, risks and possible severe side effects of OCP's. - discussed need to use Condoms to help to prevent STD's including HIV etc. - ETHYNODIOL DIAC-ETH ESTRADIOL 1 MG-35 MCG TABLET 3. Dyslipidemia - ICD9: 272.4, ICD10: E78.5 - suboptimal control - Encouraged following a low fat, low cholesterol diet. - Discussed the benefits of regular aerobic exercise and weight loss. - Check fasting lipid panel and ALT in 12 weeks. 4. Obesity, Class II, BMI 35-39.9 - ICD9: 278.00, ICD10: E66.9 - continue weight loss efforts, is improving Jay Anthony DO To ER if develops chest pain, shortness of breath, or severe worsening of symptoms. Discussed risks, benefits, alternatives, and potential side effects of medications. Patient expressed understanding and agreed with the plan. Jay Anthony DO [address] [place] [address] Referring Provider: JAY ANTHONY [[id number]] Allergies As of Date: 09/06/2017 Noted Allergy Reaction BEE POLLENS 09/12/2005 PENICILLINS 06/25/2005 Date Reviewed: 09/06/2017 Reviewed by: Tatianna Coffman LPN - Fully Assessed Reason for Visit: Follow Up [171] Cmt: 3 months Primary Visit Diagnosis:Type 2 diabetes mellitus without complication, with long-term current use of insulin (HCC) [E11.9, Z79.4] Other Visit Diagnoses:Encounter for initial prescription of contraceptive pills [Z30.011] Dyslipidemia [E78.5] Obesity, Class II, BMI 35-39.9 [E66.9] Order(s):insulin glargine (LANTUS SOLOSTAR) 100 unit/mL (3 mL) inpnInject 36 Units subcutaneously daily at bedtime.Disp: 11 PenRfl: 0 ethynodiol diacetate-ethinyl estradiol 1 mg-35 mcg (ZOVIA , ,) 1-35 mg-mcg per tabletTake 1 tablet by mouth once daily.Disp: 3 PackageRfl: 3 Prescriptions as of 09/06/2017 Sig: INSULIN GLARGINE 100 UNIT/ML * Inject 36 Units subcutaneousl* MELOXICAM 15 MG TABLET Take 1 tablet by mouth once d* METFORMIN 1,000 MG TABLET Take 1 tablet by mouth twice * LISINOPRIL 5 MG TABLET Take 1 tablet by mouth once d* BLOOD-GLUCOSE METER 1 Device as directed. Diagnos* DCEZSUDYBU-OWKYDKGADAAUP-SMHL* Take 1 capsule by mouth as di* BLOOD SUGAR DIAGNOSTIC STRIPS Test blood sugar(s) 5 times d* COMPOUNDED PRESCRIPTION KNEE HIGH COMPRESSION STOCKIN* FISH OIL-DHA-EPA 1,200 MG-144* Take by mouth. ETHYNODIOL DIAC-ETH ESTRADIOL* Take 1 tablet by mouth once d* CLOBETASOL 0.05 % SHAMPOO Apply 1 application to affect* Problem List As Of Date 09/06/2017 Noted Resolved Glucosuria [R81] INVALID FOR*10/03/2013 Hyperglycemia [R73.9] INVALID FOR*01/29/2013 Diabetes mellitus, type 2 [E11.9] INVALID FOR* Hyperlipidemia [E78.5] INVALID FOR* Abnormal uterine bleeding [N93.9] INVALID FOR* Seborrheic dermatitis of scalp [L21.9] INVALID FOR* Obesity, Class II, BMI 35-39.9 [E66.9] INVALID FOR* Dyslipidemia [E78.5] INVALID FOR* Other instructions from your clinician: Okay to decrease Lantus by 2 units every 1 week if fasting blood sugar <140, if >140 then need to keep at same dose Prescriptions ordered this encounter Disp Refills Start End INSULIN GLARGINE 100 UNIT/ML (3 ML) * 11 P* 0 09/06/2017 Route: SUBCUTANEOUS Sig: Inject 36 Units subcutaneously daily at bedtime. ETHYNODIOL DIAC-ETH ESTRADIOL 1 MG-3* 3 Pa* 3 09/06/2017 Route: ORAL Sig: Take 1 tablet by mouth once daily. Medications Discontinued During This Encounter miSOPROStol (CYTOTEC) 200 mcg tablet 4 ta* 0 06/30/2017 09/06/2017 Cmt: Do not fill until patient calls Route: OTHER Si tablets as directed. Take 2 tabs the night before AND 2 tabs the morning of the procedure - vaginally. Disc: Reason for discontinue is not on file. insulin glargine (LANTUS SOLOSTAR) 1* 11 P* 0 08/01/2017 09/06/2017 Route: SUBCUTANEOUS Sig: Inject 36 Units subcutaneously daily at bedtime. Disc: Reason for discontinue is not on file. Encounter Status:Closed by JAY ANTHONY DO on 09/06/17 COMP METABOLIC PANEL Collected: 09/02/2017 Status: F Source: [place] 11:36 AM [facility] REPOSITORY TYPE CODE TESTS RESULT OUT OF REFERENCE UNITS RANGE LAB TP 6.3-8.0 g/dL Protein, Total 6.7 LAB ALB 3.9-4.9 g/dL Low Albumin 3.6 LAB CA 8.5-10.2 mg/dL Calcium, Total 9.0 LAB TBIL 0.2-1.3 mg/dL Bilirubin, Total 0.3 LAB ALKP 32-117 U/L Alkaline Phosphatase 64 LAB AST 13-35 U/L AST 14 LAB GLU 74-99 mg/dL Glucose 83 Result Comment: The [place] Diabetes Association (ADA) provides guidance for cutoff values for fasting glucose and random glucose. The ADA defines fasting as no caloric intake for at least 8 hours. Fas ting plasma glucose results between 100 to 125 mg/dL indicate increased risk for diabetes (prediabetes). Fasting plasma glucose results greater than or equal to 126 mg/dL meet the criteria for diagnosis of diabetes. In the absence of unequivocal hyperglycemia, results should be confirmed by repeat testing. In a patient with classic symptoms of hyperglycemia or hyperglycemic crisis, random plasma glucose results greater than or equal to 200 mg/dL meet the criteria for diagnosis of diabetes. Reference: Standards of Medical Care in Diabetes 2016, [place] Diabetes Association. Diabetes Care. 2016.39(Suppl 1). LAB BUN 7-21 mg/dL BUN 13 LAB CRET 0.58-0.96 mg/dL Creatinine 0.66 LAB NA 136-144 mmol/L Sodium 138 LAB K 3.7-5.1 mmol/L Potassium 3.7 LAB CL 97-105 mmol/L Chloride 100 LAB CO2 22-30 mmol/L CO2 25 LAB AGAP 9-18 mmol/L Anion Gap 13 LAB ALT 7-38 U/L ALT 8 LAB GFRAA eGFR- Amer. >60 LAB GFRNAA . eGFR-All Other Races >60 Result Comment: eGFR (Estimated GFR) Units of measure: mL/min/1.73 meters squared eGFR is derived from the reexpressed MDRD Study equation using the following parameters: serum creatinine, age, gender and race. The creatinine assay has been calibrated to be traceable to IDMS. An eGFR <60 mL/min/1.73m2 for >3 months is consistent with chronic kidney disease. Refer to KDOQI guidelines for clinical interpretation. In patients with unstable renal function, e.g. those with acute kidney injury, the eGFR may not accurately reflect actual GFR. Performed By: #### CMP, LIPB, HBA1C #### [facility] [address] [place] [id number] LIPID PANEL, BASIC Collected: 09/02/2017 Status: F Source: [place] 11:36 AM [facility] REPOSITORY TYPE CODE TESTS RESULT OUT OF REFERENCE UNITS RANGE LAB TRIGLY 30-149 mg/dL Triglyceride High 157 LAB CHOL 100-199 mg/dL Cholesterol 189 LAB HDL >55 mg/dL Low HDL-Cholesterol 40 LAB VLDL 6-40 mg/dL VLDL Cholesterol 31 LAB LDL 60-129 mg/dL LDL-Cholesterol 118 LAB FT hrs Fasting Time 13 LAB TCHDL 1.00-5.00 TC:HDL Ratio 4.73 LAB LDLHDL 0.50-3.55 LDL:HDL Ratio 2.95 LAB NONHDL 90-159 mg/dL Non HDL Cholesterol 149 Performed By: #### CMP, LIPB, HBA1C #### [facility] [address] [place] [id number] HEMOGLOBIN A1C Collected: 09/02/2017 Status: F Source: [place] 11:36 AM [facility] REPOSITORY TYPE CODE TESTS RESULT OUT OF REFERENCE UNITS RANGE LAB HGBA1C 4.3-5.6 % High Hemoglobin A1c 7.3 LAB HBA0 mg/dL Est. Average Glucose 163 Result Comment: eAG: (Estimated average glucose) is a calculated value from HgbA1c and is customer development representative of the average blood glucose level in the last 2-3 month period. Performed By: #### CMP, LIPB, HBA1C #### [facility] [address] [place], [place] [address] ALBUMIN/CREAT RATIO Collected: 09/02/2017 Status: F Source: [place] 11:36 AM [facility] REPOSITORY TYPE CODE TESTS RESULT OUT OF REFERENCE UNITS RANGE LAB UCRR 20-300 mg/dL 115.6 Creatinine,Ur ine,Ran LAB UALBR 0.0-23.0 mg/L <12.0 Albumin Urine Random LAB UALBCR 0-30 mg/g Not Albumin/Creat calculated Ratio Performed By: #### UACR #### [facility] [address] [place], [place] [address] CNPTOUTREACH Observed: 08/22/2017 Status: COMPLETED Source: [place] 12:00 AM [facility] REPOSITORY Patient Outreach (BridgWIS) TATIANNA PRUETT ([id number]) 1975 F Date Time Provider Department 08/22/17 JAY ANTHONY [employer] During your visit today, we recorded the following information about you: Allergies As of Date: 08/22/2017 Noted Allergy Reaction BEE POLLENS 09/12/2005 PENICILLINS 06/25/2005 Date Reviewed: 08/04/2017 Reviewed by: Annabel Rossi Ma - Fully Assessed Visit Diagnosis:Medication management [Z79.899] Order(s):ALBUMIN/CREAT RATIO RND UR [SQUACR] Order #: [id number] FUTURE Prescriptions as of 08/22/2017 Sig: X INSULIN GLARGINE 100 UNIT/ML * Inject 36 Units subcutaneousl* X MISOPROSTOL 200 MCG TABLET 2 tablets as directed. Take 2* METFORMIN 1,000 MG TABLET Take 1 tablet by mouth twice * LISINOPRIL 5 MG TABLET Take 1 tablet by mouth once d* BLOOD-GLUCOSE METER 1 Device as directed. Diagnos* X MELOXICAM 15 MG TABLET Take 1 tablet by mouth once d* DCXVJYANQQ-MAENGEMRXJZZK-XKSY* Take 1 capsule by mouth as di* BLOOD SUGAR DIAGNOSTIC STRIPS Test blood sugar(s) 5 times d* CLOBETASOL 0.05 % SHAMPOO Apply 1 application to affect* COMPOUNDED PRESCRIPTION KNEE HIGH COMPRESSION STOCKIN* FISH OIL-DHA-EPA 1,200 MG-144* Take by mouth. Problem List As Of Date 08/22/2017 Noted Resolved Glucosuria [R81] INVALID FOR*10/03/2013 Hyperglycemia [R73.9] INVALID FOR*01/29/2013 Diabetes mellitus, type 2 [E11.9] INVALID FOR* Hyperlipidemia [E78.5] INVALID FOR* Abnormal uterine bleeding [N93.9] INVALID FOR* Seborrheic dermatitis of scalp [L21.9] INVALID FOR* Obesity, Class II, BMI 35-39.9 [E66.9] INVALID FOR* Dyslipidemia [E78.5] INVALID FOR* Encounter Status:Closed by [employer], PRODUSER on 10/22/17 ALLERGIES ALLERGIES DATE TYPE / CODE NAME / CODE REACTION SEVERITY SOURCE 07/30/2018 Drug Penicillins/[id number] Unknown Unknown [place] Allergy/416 0476(RXNORM) [facility] [id number]([facility]) Repository 09/12/2005 Drug BEE POLLENS [facility] Class/[address] [place] 1003(SNOMED Repository CT) 06/25/2005 Drug PENICILLINS [facility] Class/8[address] [place] 1003(SNOMED Repository CT) ENCOUNTERS ENCOUNTERS ADMIT/DISCHARGE ACCOUNT ADMITTING ENCOUNTER LOCATION SOURCE NUMBER CLASS 07/30/2018 [id number] Ambulatory Neftaly Higginbotham [facility] Hospital ing:LABSPEC Repository 07/30/2018/07/30/20 [id number] Ambulatory BMSBuilding:Juliann Higginbotham [address] Repository 07/30/2018/07/30/20 [id number] Ambulatory [address] Repository 07/16/2018/07/16/20 [id number] Ambulatory [address] Repository 07/16/2018/07/17/20 [id number] Ambulatory [address] Repository 07/13/2018/07/13/20 [id number] Ambulatory [address] [place] Repository 06/16/2018 [id number] Ambulatory [facility] ing:CT Repository 01/24/2018/01/25/20 [id number] Ambulatory [address] Repository 12/29/2017/12/30/19 [id number] Ambulatory [address] Repository 12/13/2017/12/16/19 [id number] Ambulatory [address] Repository 12/06/2017/12/07/19 [id number] Ambulatory [address] Repository 12/06/2017/12/07/19 [id number] Ambulatory [address] Repository 12/06/2017/12/08/19 [id number] Ambulatory [address] Repository 09/06/2017/09/06/19 [id number] Ambulatory [address] Repository 09/02/2017 [id number] Ambulatory [facility] Repository PAYERS PAYERS ENCOUNTER GUARANTOR PAYER SUBSCRIBER SOURCE 07/30/2018 CATHY TEMPLETON Primary TATIANNA [address], Insurance:AULTCAREPol BLAGGDOB: [place] [address]Zax: icy Number: [id number] Hospital [id number] Repository (HP) Date:[id number] [address] [address]WR: 07/30/2018 Secondary NOT GIVENUNK [place] Insurance:SELF PAY [facility] Number: Effective Repository Date:2018-07-30 07/30/2018 Cathy PruettElian [place] [address], Insurance:AULTCAREPol BLAGGDOB: [place] [address]Mvi: icy Number: [id number] Hospital [id number] Repository (HP) Date:[id number] [address] [address]BS: 07/30/2018 Secondary NOT GIVENUNK [place] Insurance:SELF PAY [facility] Number: Effective Repository Date:2018-07-18 06/16/2018 Cathy Templeton Primary TATIANNA Higginbotham [address], [facility] GILMAB: [facility] [address]Qae: icy Number: [id number] Hospital [id number] Repository (HP) Date:[id number] [address] [address]MH: 06/16/2018 Secondary NOT GIVENTRUDI Higginbotham Insurance:SELF PAY [facility] Number: Effective Repository Date:2018-06-08
== END ==
PROVIDERS: Family Provider Student in an Organized Health Care Education/Training Program; PCP Student in an Organized Health Care Education/Training Program; Referring Provider Nurse Practitioner Women's Health; Visit Provider Nurse Practitioner Women's Health
DX: Z12.4 Encounter for screening for malignant neoplasm of cervix (principal)
CPT/HCPCS: 87624; 88175; G0145

== ENCOUNTER → 2018-11-17 08:47 | Outpatient (CLI) | payer OTHER, SELFPAY ==
[2018-07-30 14:41] VITALS: BMI 27.8
--- NOTE | 2018-11-17 08:58 | MRI_ITS ---
STUDY: MRI BRAIN WITH AND WITHOUT CONTRAST REASON FOR EXAM: Female, 43 years old. Headaches and anosmia. TECHNIQUE: Standardized multiplanar fat and water weighted pulse sequences were obtained. Dotarem 15 IV was administered for the contrast portion of the examination. Thin multiplanar sections through the orbits were also performed. COMPARISON: CT of the paranasal sinuses 06/16/2018. FINDINGS: No restricted diffusion to suspect acute or subacute ischemic infarct. No focal signal abnormalities throughout the brain parenchyma. Normal size of the ventricles and extra-axial spaces for the patient's age. Normal white matter tracts of the supratentorial brain. Normal bilateral basal ganglia. Normal thalami. There is no extra-axial fluid accumulation. Normal flow voids within the major intracranial circulation suggesting patency by spin echo criteria. Normal venous enhancement. There is no enhancing intra-axial or extra-axial abnormality. Normal sella turcica, pituitary gland, infundibular stalk, optic chiasm and hypothalamus. Normal tectal plate and pineal gland. Normal midbrain, sarita and medulla. Normal cerebellum. Normal basal cisterns. Normal bilateral temporal bones. Normal bilateral internal auditory canals. No demonstrated orbital abnormality, within the constraints of a routine brain study. Mucosal thickening in the right maxilla sinus is chronic and unchanged. The remaining paranasal sinuses are normal. Normal calvarium and skull base. Normal visualized soft tissue structures. Normal visualized upper cervical spine. MRI/Brain W/WO Contrast IMPRESSION: 1. Normal unenhanced and enhanced MRI of the brain and the orbits. 2. Chronic mucosal thickening in the right maxillary sinus is unchanged when compared to 06/16/2018. Electronically Signed: Maynor Samson MD at 13:43 EDT , Service support ,
== END ==
PROVIDERS: Family Provider Student in an Organized Health Care Education/Training Program; PCP Student in an Organized Health Care Education/Training Program; Referring Provider Otolaryngology; Visit Provider Otolaryngology
DX: R43.0 Anosmia (principal)
CPT/HCPCS: 70553; A9575

== ENCOUNTER 2018-12-21 08:38 | Day surgery (SDC) | payer OTHER, SELFPAY ==
[2018-07-30 14:41] VITALS: BMI 27.8
[2018-12-21 09:06] VITALS: BP 104/71; PULSE 88; RESP 18; TEMP 37; O2SAT 100; BMI 27.4
[2018-12-21 09:06] LABS: Hematocrit 38.8 % (37-47); Hemoglobin 12.8 g/dl (12.0-15.0); Mean Corpuscular Hgb 26.9 pg (27.0-32.0); Mean Corpuscular Volume 81.5 fL (81-99); Mean Platelet Vol. 8.8 fl (6.2-12.0); Platelet Count 294 K/mm3 (150-450); RBC Distribution Width CV 12.6 % (11.6-14.6); RBC Distribution Width SD 37.5 fl (35.1-43.9); Red Blood Count 4.76 M/mm3 (4.2-5.4); White Blood Count 5.6 K/mm3 (4.4-11.0)
[2018-12-21 09:09] LABS: Scan Indicated on CBC? Y/N NO
[2018-12-21 09:12] LABS: International Normalized Ratio 0.9; Prothrombin Time (Protime)PT. 11.8 SECONDS (11.7-14.9)
[2018-12-21 09:13] LABS: Partial Thromboplast Time 29.7 Seconds (24.1-36.2)
[2018-12-21 09:21] LABS: AST(SGOT) 14 U/L (15-37); Alanine Aminotransfer ALT/SGPT 18 U/L (13-56); Albumin, Serum 3.5 g/dL (3.2-5.0); Alkaline Phosphatase 74 U/L (45-117); Anion Gap 6 (5-15); BUN 13 mg/dL (7-18); BUN/Creat Ratio 16.2 RATIO (10-20); Bilirubin, Direct 0.14 mg/dL (0.00-0.30); Calcium,Total 8.9 mg/dL (8.5-10.1); Chloride 98 mmol/L (98-107); EST Glomerular Filtration Rate 82 mL/min (>60); Est Glom Filt Rate - Afr Amer 99 mL/min (>60); Estimated Creatinine Clearance 79.91 ml/min; Globulin 3.7 g/dL (2.2-4.2); Glucose 275 mg/dL (74-106); Potassium 3.8 mmol/L (3.5-5.1); Protein, Total 7.2 g/dL (6.4-8.2); Sodium Level 134 mmol/L (136-145)
[2018-12-21 09:24] LABS: Hemoglobin A1c 10.3 % (4.2-6.3)
[2018-12-21 09:31] LABS: Bedside Glucose 262 mg/dL (70-110)
[2018-12-21] MEDS: Lidocaine 4% 50 ML Bottle (10:00)
[2018-12-21] MEDS: Oxymetazoline 0.05% 1 SPRAY SPRAY.BTL 15 SPRAY (10:00)
--- NOTE | 2018-12-21 10:15 | ETH_PTH ---
PATIENT: DEVON SIM LOC: [facility] [place] U#:[id number] AGE/SX: 43/F ROOM: RE12/21/[address]: Dr. Brent Campbell MD : 1975 BED: DIS: 12/21/2018 SPEC #: [id number] RECD: 12/21/18 16:37 STATUS: LATIA JOHN #: [id number] DANIEL: 12/21/18 10:[address]: Brent Campbell DEPT: SURGICAL PATHOLOGY RECD BY: Tremaine Jackson ENTERED: 12/24/18 10:20 SP TYPE: ETH TISS OTHR DR: Dr. Jay Gold DO Tissues: Ethmoid sinus, NOS Procedures: Special Stain Group I Surgery Specimen Level III GMS Stain (control) HEADER OPERATION: Endoscopic intranasal ethmoid, maxillary antrostomy PRE-OP DIAGNOSIS: Chronic right ethmoid and maxillary sinusitis TISSUE SUBMITTED: Right ethmoid and maxillary sinus tissue MICROSCOPIC DIAGNOSIS Right ethmoid and maxillary sinus contents, excision: Consistent with chronic sinusitis. Positive for fungal organisms. AM:jimbo 12/25/18 COMMENT GMS stain with matched control reveals fungal hyphae and budding forms consistent with aspergillus species. Clinical correlation is suggested. Case has been reviewed in consultation with Dr. Angel who concurs with the above diagnosis. IDC:SJ MICROSCOPIC DESCRIPTION Slides are reviewed. GROSS DESCRIPTION Received in fixative is one container labeled with the patient's name and designated right ethmoid and maxillary sinus tissue. The specimen consists of somewhat gritty dark zepeda soft tissue measuring in aggregate 5 x 3 x 0.2 cm. The specimen is totally submitted in two cassettes. / AM:jimbo 12/24/18 TC:5 CPT: 92714, 12932
--- NOTE | 2018-12-21 11:02 | PCM.OPRPT ---
Problem List (1) Chronic maxillary sinusitis Status: Chronic (2) Chronic ethmoidal sinusitis Status: Chronic Report of Operation Date of Procedure: 12/21/18 Pre-Operative Diagnosis: Chronic right maxillary and ethmoid sinusitis Post-Operative Diagnosis: same Surgery/Procedure Performed:: Right maxillary antrostomy with removal of infected debris, right total ethmoidectomy Description of Surgical Findings:: Tatianna is a 43-year-old female with prior imaging showing a chronic right maxillary sinusitis with ongoing purulent discharge and a subsequent MRI scan that showed no interval change in disease despite prior attempts at treatment with balloon sinus plasty on that side at another facility. She reported long-standing reduced sense of smell which was of uncertain relation to this finding but certainly in the setting of her underlying diabetes and chronic infection noted on imaging despite long intervals in between surgical treatment in hopes of correction was offered. The risks, alternatives, potential complications, and benefits were discussed at length and any questions answered to the patient and/or caregiver's satisfaction. Witnessed informed consent was obtained in the office, and the patient and/or caregiver was agreeable to proceed. Procedure went as follows: The patient was identified in the preoperative holding and brought to the operating room, was placed under general anesthesia and intubated. When appropriate anesthesia was obtained, pledgets soaked in a 50-50 mixture of oxymetazoline and 4% topical lidocaine were placed to decongest the nasal mucosa. These were then removed and beginning on the right side using a 0? endoscope the nasal cavity examined. There is noted to be purulent discharge from the ostiomeatal complex. The insertion of the middle turbinate and uncinate process was then injected with 1% lidocaine with 100,000 epinephrine for a total of 2 mL. The middle turbinate was medialized with a Niobrara elevator. This allowed examination of the maxillary sinus ostia which was then probed with a double ball seeker. The uncinate process was then outfractured with a J curette and transected with a backbiting forceps. This was then removed with the microdebrider creating a wide maxillary antrostomy. The maxillary sinus was noted to be filled with thick peanut butter consistent infected debris which was removed in piecemeal fashion and then irrigated until clear with saline solution. The ethmoid bulla was then entered and a total ethmoidectomy was then carried out working posteriorly to anterior. Any polyps, scar, and mucous secretions were removed. Extensive the polypoid inflammation was noted within the ethmoid air cells but no susan purulence. Pledgets soaked in oxymetazoline were then placed for hemostasis and upon removal Floseal hemostatic agent was then applied. An NG tube was then placed to decompress the stomach and the patient returned to anesthesia, revived and extubated having tolerated the procedure well. Type of Anesthesia:: General Anesthesiologist: Brent Gomez Special Medications: none Specimen's removed: right maxillary and ethmoid sinus contents Drains: none Estimated Blood Loss (mL): 10 mL Fluids Replaced: 1200 mL Grafts/Implants Used: none - Complications none - Admit VTE Documentation VTE Present on Admission: No VTE Mechan Device Prophylaxis: SCD's VTE Pharm Prophylaxis ordered?: No
[2018-12-21 11:07] VITALS: BP 104/71; BP 130/81; PULSE 87; RESP 19; TEMP 36.7; O2SAT 99
--- NOTE | 2018-12-21 11:10 | DCINST_ITS ---
- Discharge Diagnoses Current Active Problems: Current Active and Chronic Problems (Last Updated 07/30/18 @ 14:50 by Tamia Ramos) Chronic maxillary sinusitis (Chronic) Chronic ethmoidal sinusitis (Chronic) You will use the following diet at home:: No restrictions, Regular Discharge Activity: Return to Normal Activity Call your doctor if your incision/area has: Sudden Increased Bleeding Call your doctor if you observe: Fever of 101 or Higher, Uncontrolled pain Allergies/Adverse Reactions: Allergies Penicillins Adverse Reaction (Unknown, Verified 12/21/18 09:04) unknown Medications to take at Discharge duloxetine 20 mg capsule,delayed release 20 mg PO DAILY 07/30/18 ethynodiol diacetate-ethinyl estradiol 1 mg-35 mcg tablet 1 tab PO DAILY #84 tab 07/30/18 insulin glargine (U- 100) 100 unit/mL subcutaneous solution 20 unit SC QHS 07/30/18 lisinopril 5 mg tablet 5 mg PO DAILY 07/30/18 meloxicam 15 mg tablet 15 mg PO DAILY 07/30/18 metformin 1,000 mg tablet 1,000 mg PO BID 07/30/18 omega-3 fatty acids 1,000 mg capsule 1,000 mg PO DAILY 07/30/18 Tizanidine HCl [Zanaflex] 2 mg PO PRN PRN 12/14/18 Orders to be completed after discharge: ,Urine Time Frame: 12/21/18, Location: Laboratory Primary Care Physician: Jay Gold DO [Primary Care Provider] - Test Results: Test results from this visit will be discussed in further detail at your follow- up appointment, if applicable. Please Follow Up With: Brent Campbell MD When: 2 weeks
[2018-12-21 11:15] VITALS: BP 104/71; BP 129/80; PULSE 82; RESP 16; O2SAT 99
[2018-12-21 11:30] VITALS: BP 104/71; BP 128/83; PULSE 77; RESP 16; O2SAT 99
[2018-12-21 11:35] LABS: Bedside Glucose 200 mg/dL (70-110)
[2018-12-21 11:41] VITALS: BP 104/71; PULSE 83; RESP 16; TEMP 36.7; O2SAT 100
[2018-12-21] MEDS: Acetaminophen 325 MG Tablet 650 MG PO (12:14)
[2018-12-21 12:50] VITALS: BP 104/71
== END 2018-12-21 12:52 | disposition home or self-care (01) ==
LOC: SDC 08:40 → AC 08:40
PROVIDERS: Anesthesiology; Family Provider Student in an Organized Health Care Education/Training Program; PCP Student in an Organized Health Care Education/Training Program; Referring Provider Otolaryngology; Visit Provider Otolaryngology
PROC: (CPT 31255; principal; 2018-12-21 09:45)
DX: J32.0 Chronic maxillary sinusitis (principal); J32.2 Chronic ethmoidal sinusitis; E11.9 Type 2 diabetes mellitus without complications; R51 Headache
CPT/HCPCS: 31255; 31267; 80048; 80076; 82962; 83036; 85027; 85610; 85730; 88304; 88305; 88312; J7120; J2405

== ENCOUNTER → 2019-01-31 13:27 | Outpatient (CLI) | payer OTHER, SELFPAY | PROVIDERS: Family Provider Student in an Organized Health Care Education/Training Program; PCP Student in an Organized Health Care Education/Training Program; Referring Provider Otolaryngology; Visit Provider Otolaryngology | DX: J32.0 Chronic maxillary sinusitis (principal) | CPT/HCPCS: 87070; 87077; 87186; 87205 ==

== ENCOUNTER → 2021-02-11 12:16 | Outpatient (CLI) | payer OTHER, SELFPAY ==
[2019-11-21 10:03] VITALS: BMI 27.4
--- NOTE | 2021-02-11 12:19 | BI_ITS ---
MAMMOGRAPHY - BILATERAL SCREENING REASON FOR EXAM: Female, 45 years old. Routine annual screening examination. PERTINENT HISTORY: Non-contributory. TECHNIQUE: Digital bilateral breast radha (3D mammographic acquisition) in the CC and MLO projections. 2-D mediolateral oblique (MLO) and craniocaudad (CC) views of both breasts were obtained. CAD: Full Field Digital Mammography with Computer Added Detection was performed. COMPARISON: Comparison is made with prior abdomen examination dated 07/30/2018. FINDINGS: Breast Composition: The breasts are almost entirely fatty. There are no dominant masses or suspicious calcifications. No other significant abnormalities are identified. There has been no significant change since the prior study. BI/SCRN MAMM (CAD)W/RADHA BILAT IMPRESSION: Stable bilateral screening mammogram. Yearly follow-up mammogram recommended. (A) ASSESSMENT CATEGORY: BIRADS Category 1: Negative. A letter regarding these results will be sent to the patient by the facility within 30 days. Approximately 10% of breast cancers are not detected by mammography. A normal mammogram should not delay biopsy of a clinically suspicious abnormality. [id number] Electronically Signed: Renny España MD at 13:24 EDT , Service support ,
[2021-02-16 13:17] LABS: HPV APTIMA, High Risk Negative (Negative)
== END ==
PROVIDERS: PCP Student in an Organized Health Care Education/Training Program; Referring Provider Nurse Practitioner Women's Health; Visit Provider Nurse Practitioner Women's Health
DX: Z12.31 Encounter for screening mammogram for malignant neoplasm of breast (principal); Z12.4 Encounter for screening for malignant neoplasm of cervix
CPT/HCPCS: 77063; 77067; 87624; 88175; G0145

== ENCOUNTER → 2022-04-06 | Outpatient (CLI) | payer OTHER, SELFPAY ==
--- NOTE | 2022-04-06 11:59 | BI_ITS ---
MAMMOGRAPHY - BILATERAL SCREENING 3-D TOMOSYNTHESIS REASON FOR EXAM: Female, 47 years old. Annual screening mammogram. PERTINENT HISTORY: No significant family history. TECHNIQUE: 2-D mammograms and 3-D Tomosynthesis of the breast (s) were performed. CAD was performed. COMPARISON: 02/11/2021. FINDINGS: The breast composition is almost entirely fat. Stable scattered benign calcifications in the right breast. No dense spiculated masses or suspicious microcalcifications are identified. No architectural distortion is identified. There is no skin thickening or retraction. BI/SCRN MAMM (CAD)W/RADHA BILAT IMPRESSION: No interval change and no mammographic signs of malignancy. Routine yearly mammograms recommended. ASSESSMENT CATEGORY: BIRADS Category 2: Benign. A letter regarding these results will be sent to the patient by the facility within 30 days. FOLLOW UP RECOMMENDATION: Yearly follow up mammogram recommended. (A) Approximately 10% of breast cancers are not detected by mammography. A normal mammogram should not delay biopsy of a clinically suspicious abnormality. Electronically Signed: Jerry Ayala MD at 13:51 EDT ,
== END | disposition home or self-care (01) ==
PROVIDERS: PCP Student in an Organized Health Care Education/Training Program; Visit Provider Nurse Practitioner Women's Health
DX: Z12.31 Encounter for screening mammogram for malignant neoplasm of breast (principal)
CPT/HCPCS: 77063; 77067

== ENCOUNTER → 2023-06-12 | Outpatient (CLI) | payer OTHER, SELFPAY ==
--- NOTE | 2023-06-12 09:40 | BI_ITS ---
MAMMOGRAPHY - BILATERAL SCREENING REASON FOR EXAM: Female, 48 years old. Routine annual screening examination. PERTINENT HISTORY: Non-contributory. Lung TECHNIQUE: Digital bilateral breast radha (3D mammographic acquisition) in the CC and MLO projections. 2-D mediolateral oblique (MLO) and craniocaudad (CC) views of both breasts were obtained. CAD: Full Field Digital Mammography with Computer Added Detection was performed. COMPARISON: Comparison is made with prior study April 06, 2022 and February 11, 2021. FINDINGS: Breast Composition: The breasts are almost entirely fatty. There are no dominant masses or suspicious calcifications. No other significant abnormalities are identified. There has been no significant change since the prior study. BI/SCRN MAMM (CAD)W/RADHA BILAT IMPRESSION: Stable bilateral screening mammogram. Yearly follow-up mammogram recommended. (A) ASSESSMENT CATEGORY: BIRADS Category 1: Negative. A letter regarding these results will be sent to the patient by the facility within 30 days. Approximately 10% of breast cancers are not detected by mammography. A normal mammogram should not delay biopsy of a clinically suspicious abnormality. [id number] Electronically Signed: Renny España MD at 13:00 EDT ,
== END | disposition home or self-care (01) ==
PROVIDERS: PCP Student in an Organized Health Care Education/Training Program; Referring Provider Nurse Practitioner Women's Health; Visit Provider Nurse Practitioner Women's Health
DX: N89.8 Other specified noninflammatory disorders of vagina (principal); Z12.31 Encounter for screening mammogram for malignant neoplasm of breast
CPT/HCPCS: 77063; 77067; 87070; 87205

== ENCOUNTER → 2024-06-17 | Outpatient (CLI) | payer OTHER, SELFPAY ==
[2024-06-20 15:08] LABS: HPV APTIMA, High Risk Negative (Negative)
== END | disposition home or self-care (01) ==
LOC: OPBI 11:22
PROVIDERS: PCP Student in an Organized Health Care Education/Training Program; Referring Provider Nurse Practitioner Women's Health; Visit Provider Nurse Practitioner Women's Health
DX: Z12.4 Encounter for screening for malignant neoplasm of cervix (principal); R87.619 Unspecified abnormal cytological findings in specimens from cervix uteri
CPT/HCPCS: 87624; 88175; G0145

== ENCOUNTER → 2024-06-17 | Outpatient (CLI) | payer OTHER, SELFPAY ==
--- NOTE | 2024-06-17 12:23 | BI_ITS ---
MAMMOGRAPHY - BILATERAL SCREENING 3-D TOMOSYNTHESIS REASON FOR EXAM: Female, 49 years old. screening PERTINENT HISTORY: No significant family history. TECHNIQUE: 2-D mammograms and 3-D Tomosynthesis of the breast (s) were performed. CAD was performed. COMPARISON: 06/12/2023 FINDINGS: The breast composition is composed of scattered fibroglandular density. Scattered benign calcifications are seen. No dense spiculated masses or suspicious microcalcifications are identified. No architectural distortion is identified. There is no skin thickening or retraction. There has been no significant change since the prior study. BI/SCRN MAMM (CAD)W/RADHA BILAT IMPRESSION: No mammographic signs of malignancy. Routine yearly mammograms recommended. ASSESSMENT CATEGORY: BIRADS Category 1: Negative. A letter regarding these results will be sent to the patient by the facility within 30 days. FOLLOW UP RECOMMENDATION: Yearly follow up mammogram recommended. (A) Approximately 10% of breast cancers are not detected by mammography. A normal mammogram should not delay biopsy of a clinically suspicious abnormality. Electronically Signed: Kenrick Verduzco MD at 14:06 EDT ,
== END | disposition home or self-care (01) ==
LOC: OPBI 12:23
PROVIDERS: PCP Student in an Organized Health Care Education/Training Program; Referring Provider Nurse Practitioner Women's Health; Visit Provider Nurse Practitioner Women's Health
DX: Z12.31 Encounter for screening mammogram for malignant neoplasm of breast (principal)
CPT/HCPCS: 77063; 77067